=== PATIENT | male | born 1955 | race Caucasian/White ===

== ENCOUNTER 2023-06-10 12:02 | Inpatient (IN) | payer OTHER ==
[~2023-06-10] VITALS: Ht 177.8 cm; Wt 88.9 kg
[2023-06-10] VITALS (7 sets, daily range): BP systolic 143–183; PULSE 60–87; RESP 18–20; TEMP 97.7–98; O2SAT 96–98
[2023-06-10] MEDS: cefTRIAXone 1 GM IVPB PREMIX 50 ML IV ONE (13:28)
[2023-06-10] MEDS: DIPHTH,PERTUSS(ACELL),TET VAC 0.5 ML VIAL (Tdap) I.M. ONE (13:32)
[2023-06-10] MEDS ORDERED: ALBUTEROL SULFATE 0.083% 2.5 MG/3 ML VIAL.NEB INH PRN (14:00)
[2023-06-10] MEDS ORDERED: HYDROcodone/ACETAMIN 5-325 MG TAB (NORCO/ VICODIN) PO PRN (14:00)
[2023-06-10] MEDS ORDERED: LORazepam 2 MG/ML VIAL IVP PRN (14:00)
[2023-06-10] MEDS ORDERED: IPRATROPIUM BROM 0.5 MG/2.5 ML VIAL.NEB (ATROVENT) INH PRN (14:00)
[2023-06-10] MEDS ORDERED: ONDANSETRON HCL 4 MG/2 ML VIAL IVP PRN (14:00)
[2023-06-10] MEDS ORDERED: ACETAMINOPHEN 325 MG TABLET PO PRN (14:00)
[2023-06-10 14:04] LABS: BASOPHILS # (AUTO) 0.1 K/uL (0.0-0.2); BASOPHILS % (AUTO) 0.8 % (0.0-2.0); EOSINOPHILS # (AUTO) 0.2 K/uL (0.0-0.4); EOSINOPHILS % (AUTO) 2.8 % (0.0-4.0); HEMATOCRIT 39.2 % (36-54); HEMOGLOBIN 13.5 g/dL (14.0-18.0); LYMPHOCYTES # (AUTO) 1.1 K/uL (1.0-5.5); LYMPHOCYTES % (AUTO) 16.8 % (20.5-51.5); MEAN CORPUSCULAR HEMOGLOBIN 31 pg (27-31); MEAN CORPUSCULAR HGB CONC 34 % (32-36); MEAN CORPUSCULAR VOLUME 91 fL (79.0-98.0); MONOCYTES # (AUTO) 0.7 K/uL (0.0-1.0); MONOCYTES % (AUTO) 10.1 % (1.7-9.3); NEUTROPHILS # (AUTO) 4.6 K/uL (1.8-7.7); NEUTROPHILS % (AUTO) 69.5 % (40.0-70.0); PLATELET COUNT (AUTO) 261 K/uL (130-430); RED BLOOD CELL COUNT(AUTO) 4.32 MIL/uL (4.2-6.2); RED CELL DISTRIBUTION WIDTH 13.7 % (9.0-15.0); WHITE BLOOD COUNT (AUTO) 6.7 K/uL (4.8-10.8)
[2023-06-10 14:18] LABS: CALCIUM 8.5 mg/dL (8.4-11.0); CREATININE 1.73 mg/dL (0.55-1.30)
[2023-06-10 14:51] LABS: HEMOGLOBIN A1C 6.09 % (<5.7)
[2023-06-10] MEDS: NIFEdipine 30 MG TAB.ER.24 PO ONE (15:10)
[2023-06-10] MEDS: 0.45% NACL 1,000 ML IV SCH (16:52)
[2023-06-10] MEDS: VANCOMYCIN HCL 1,000 MG in NS 250 ML IV SCH (18:07)
[2023-06-10] MEDS: HYDROcodone/ACETAMIN 10-325 MG TAB PO PRN (19:00)
[2023-06-10] MEDS: ZOLPIDEM TARTRATE 5 MG TABLET PO PRN (21:49)
[2023-06-11 05:35] LABS: BASOPHILS # (AUTO) 0.1 K/uL (0.0-0.2); BASOPHILS % (AUTO) 0.7 % (0.0-2.0); EOSINOPHILS # (AUTO) 0.2 K/uL (0.0-0.4); EOSINOPHILS % (AUTO) 3.6 % (0.0-4.0); HEMOGLOBIN 13.3 g/dL (14.0-18.0); LYMPHOCYTES # (AUTO) 1.2 K/uL (1.0-5.5); LYMPHOCYTES % (AUTO) 16.8 % (20.5-51.5); MEAN CORPUSCULAR HEMOGLOBIN 31 pg (27-31); MEAN CORPUSCULAR HGB CONC 34 % (32-36); MEAN CORPUSCULAR VOLUME 90 fL (79.0-98.0); MONOCYTES # (AUTO) 0.8 K/uL (0.0-1.0); MONOCYTES % (AUTO) 11.5 % (1.7-9.3); NEUTROPHILS # (AUTO) 4.6 K/uL (1.8-7.7); NEUTROPHILS % (AUTO) 67.4 % (40.0-70.0); PLATELET COUNT (AUTO) 268 K/uL (130-430); RED BLOOD CELL COUNT(AUTO) 4.32 MIL/uL (4.2-6.2); RED CELL DISTRIBUTION WIDTH 13.7 % (9.0-15.0); WHITE BLOOD COUNT (AUTO) 6.9 K/uL (4.8-10.8)
[2023-06-11 05:51] LABS: CALCIUM 8.4 mg/dL (8.4-11.0); CREATININE 0.82 mg/dL (0.55-1.30); POTASSIUM 3.7 mmol/L (3.5-5.1); TOTAL BILIRUBIN 0.5 mg/dL (0.0-1.0)
[2023-06-11] MEDS: cefTRIAXone 1 GM in D5W 50 ML IV SCH (08:54)
[2023-06-11] MEDS ORDERED: NIFEdipine 30 MG TAB.ER.24 PO SCH (09:00)
[2023-06-11 09:08] VITALS: BP_SYST 142; PULSE 73; TEMP 97.5; O2SAT 98
[2023-06-11] MEDS: HEPARIN SODIUM,PORCINE 5,000 UNITS/ML VIAL SUBCUT SCH (09:23)
[2023-06-11] MEDS: ACETAMINOPHEN 325 MG TABLET PO PRN (09:23)
[2023-06-11] MEDS: NIFEdipine 30 MG TAB.ER.24 PO SCH (09:42)
[2023-06-11 12:01] VITALS: BP_SYST 147; PULSE 65; O2SAT 97
[2023-06-11 20:00] VITALS: BP_SYST 144; PULSE 83; RESP 18; TEMP 97.3; O2SAT 94
[2023-06-12] VITALS (7 sets, daily range): BP systolic 130–140; PULSE 72–79; RESP 17–18; TEMP 97.6–98.7; O2SAT 95–98
[2023-06-12 05:17] LABS: BASOPHILS # (AUTO) 0.1 K/uL (0.0-0.2); EOSINOPHILS # (AUTO) 0.3 K/uL (0.0-0.4); EOSINOPHILS % (AUTO) 4.3 % (0.0-4.0); HEMATOCRIT 42.8 % (36-54); HEMOGLOBIN 14.5 g/dL (14.0-18.0); LYMPHOCYTES # (AUTO) 1.6 K/uL (1.0-5.5); LYMPHOCYTES % (AUTO) 27.1 % (20.5-51.5); MEAN CORPUSCULAR HEMOGLOBIN 31 pg (27-31); MEAN CORPUSCULAR HGB CONC 34 % (32-36); MEAN CORPUSCULAR VOLUME 91 fL (79.0-98.0); MONOCYTES # (AUTO) 0.7 K/uL (0.0-1.0); MONOCYTES % (AUTO) 12.2 % (1.7-9.3); NEUTROPHILS # (AUTO) 3.4 K/uL (1.8-7.7); NEUTROPHILS % (AUTO) 55.4 % (40.0-70.0); PLATELET COUNT (AUTO) 299 K/uL (130-430); RED BLOOD CELL COUNT(AUTO) 4.72 MIL/uL (4.2-6.2); RED CELL DISTRIBUTION WIDTH 14.1 % (9.0-15.0); WHITE BLOOD COUNT (AUTO) 6.1 K/uL (4.8-10.8)
[2023-06-12 05:35] LABS: CALCIUM 8.9 mg/dL (8.4-11.0); CREATININE 0.93 mg/dL (0.55-1.30); POTASSIUM 3.8 mmol/L (3.5-5.1)
[2023-06-12] MEDS: BALSAM PERU/CASTOR OIL 56.7 GM OINT...G. TP SCH (12:00)
[2023-06-12] MEDS: VANCOMYCIN HCL 1.25 GM/NS 250 ML IV SCH (17:59)
[2023-06-13] VITALS (8 sets, daily range): BP systolic 139–173; PULSE 72–85; RESP 16–18; TEMP 97.5–98.7; O2SAT 85–96
[2023-06-13] MEDS: CEFEPIME 1 GM in D5W 50 ML IV SCH (14:03)
[2023-06-14 01:00] VITALS: BP_SYST 139; PULSE 82; RESP 18; TEMP 98.1; O2SAT 85
[2023-06-14 06:20] LABS: CALCIUM 8.8 mg/dL (8.4-11.0); CREATININE 0.96 mg/dL (0.55-1.30); VANCOMYCIN,TROUGH 16.6 ug/mL (10.0-20.0)
[2023-06-14 08:00] VITALS: O2SAT 95
[2023-06-14] MEDS: BALSAM PERU/CASTOR OIL 56.7 GM OINT...G. TP ONE (08:00)
[2023-06-14] MEDS ORDERED: NIFE-34 PO (09:30)
[2023-06-14 09:54] VITALS: O2SAT 96
[2023-06-14 10:35] VITALS: BP_SYST 150; PULSE 77; RESP 18; TEMP 98; O2SAT 95
[2023-06-14 11:09] VITALS: BP_SYST 147; PULSE 83; RESP 16; TEMP 98.1; O2SAT 97
[2023-06-14 12:57] VITALS: BP_SYST 147; PULSE 83; RESP 16; TEMP 98.1; O2SAT 97
== END 2023-06-14 15:00 | DRG 602 ==
LOC: SED 12:02 → SMU 13:58
PROVIDERS: ADMIT Internal Medicine; ATTEND Internal Medicine
DX: L03.115 Cellulitis of right lower limb (principal); N17.0 Acute kidney failure with tubular necrosis; L97.819 Non-pressure chronic ulcer of other part of right lower leg with unspecified severity; R73.03 Prediabetes; I10 Essential (primary) hypertension; I73.9 Peripheral vascular disease, unspecified; F17.210 Nicotine dependence, cigarettes, uncomplicated; B96.5 Pseudomonas (aeruginosa) (mallei) (pseudomallei) as the cause of diseases classified elsewhere; I87.2 Venous insufficiency (chronic) (peripheral); E66.9 Obesity, unspecified; I87.8 Other specified disorders of veins; Z68.28 Body mass index [BMI] 28.0-28.9, adult
CPT/HCPCS: 36415; 76770; 80048; 80053; 80202; 83037; 83605; 85025; 85651; 87040; 87070; 87075; 90715; 93923; 93970; 96365; 99285; J0692; J0696; J1644; J3370; J7050; J7060

== ENCOUNTER 2023-11-01 14:32 | Inpatient (IN) | payer OTHER ==
[~2023-11-01] VITALS: Ht 175.3 cm; Wt 86.8 kg
[~2023-11-01 14:32] MED LIST: NIFE-34 PO
[2023-11-01 14:43] VITALS: BP_SYST 196; PULSE 71; RESP 22; TEMP 98.3; O2SAT 98
[2023-11-01] MEDS: KETOROLAC TROMETHAMINE 30 MG VIAL IM ONE (15:42)
[2023-11-01 15:50] LABS: BASOPHILS % (AUTO) 0.2 % (0.0-2.0); EOSINOPHILS # (AUTO) 0.1 K/uL (0.0-0.4); EOSINOPHILS % (AUTO) 0.9 % (0.0-4.0); HEMATOCRIT 41.4 % (36-54); HEMOGLOBIN 13.9 g/dL (14.0-18.0); LYMPHOCYTES # (AUTO) 0.5 K/uL (1.0-5.5); LYMPHOCYTES % (AUTO) 5.4 % (20.5-51.5); MEAN CORPUSCULAR HEMOGLOBIN 31 pg (27-31); MEAN CORPUSCULAR HGB CONC 34 % (32-36); MEAN CORPUSCULAR VOLUME 91 fL (79.0-98.0); MONOCYTES # (AUTO) 0.4 K/uL (0.0-1.0); MONOCYTES % (AUTO) 4.4 % (1.7-9.3); NEUTROPHILS # (AUTO) 8.3 K/uL (1.8-7.7); NEUTROPHILS % (AUTO) 89.1 % (40.0-70.0); PLATELET COUNT (AUTO) 223 K/uL (130-430); RED BLOOD CELL COUNT(AUTO) 4.57 MIL/uL (4.2-6.2); RED CELL DISTRIBUTION WIDTH 14.4 % (9.0-15.0); WHITE BLOOD COUNT (AUTO) 9.4 K/uL (4.8-10.8)
[2023-11-01 16:09] LABS: ALBUMIN 3.5 g/dL (3.4-4.8); BILIRUBIN,DIRECT 0.2 mg/dL (0.0-0.3); CREATININE 1.15 mg/dL (0.55-1.30); TOTAL BILIRUBIN 0.7 mg/dL (0.0-1.0); TOTAL PROTEIN, SERUM 7.6 g/dL (6.4-8.3)
[2023-11-01] MEDS ORDERED: ACETAMINOPHEN 325 MG TABLET PO PRN (16:45)
[2023-11-01] MEDS ORDERED: hydrALAZINE HCL 20 MG/ML VIAL IVP PRN (16:45)
[2023-11-01] MEDS ORDERED: GLUCOSE (DEXTROSE) ORAL GEL -Adults PO PRN (16:45)
[2023-11-01] MEDS ORDERED: HYDROmorphone 2 MG/ML VIAL IVP PRN (16:45)
[2023-11-01] MEDS ORDERED: HYDROcodone/ACETAMIN 10-325 MG TAB PO PRN (16:45)
[2023-11-01] MEDS ORDERED: INSULIN REGULAR, HUMAN 100 UNITS/ML, 3 ML VIAL (humuLIN R) SUBCUT PRN (16:45)
[2023-11-01] MEDS ORDERED: D5W 1,000 ML IV PRN (16:45)
[2023-11-01] MEDS ORDERED: ONDANSETRON HCL 4 MG/2 ML VIAL IVP PRN (16:45)
[2023-11-01] MEDS ORDERED: DEXTROSE 50% JECT 50 ML DISP.SYRIN IVP PRN (16:45)
[2023-11-01] MEDS: NACL 0.9% 1,000 ML IV ONE (16:55)
[2023-11-01] MEDS ORDERED: OLME20TA69 PO (16:57)
[2023-11-01] MEDS: D5NS 1,000 ML IV SCH (17:20)
[2023-11-01 20:35] VITALS: BP_SYST 142; PULSE 81; RESP 18; TEMP 98.8; O2SAT 100
[2023-11-02 05:33] LABS: BASOPHILS % (AUTO) 0.4 % (0.0-2.0); EOSINOPHILS # (AUTO) 0.4 K/uL (0.0-0.4); EOSINOPHILS % (AUTO) 5.3 % (0.0-4.0); HEMATOCRIT 39.6 % (36-54); HEMOGLOBIN 13.5 g/dL (14.0-18.0); LYMPHOCYTES # (AUTO) 1.2 K/uL (1.0-5.5); LYMPHOCYTES % (AUTO) 14.7 % (20.5-51.5); MEAN CORPUSCULAR HEMOGLOBIN 31 pg (27-31); MEAN CORPUSCULAR HGB CONC 34 % (32-36); MEAN CORPUSCULAR VOLUME 91 fL (79.0-98.0); MONOCYTES # (AUTO) 0.7 K/uL (0.0-1.0); MONOCYTES % (AUTO) 8.3 % (1.7-9.3); NEUTROPHILS # (AUTO) 5.8 K/uL (1.8-7.7); NEUTROPHILS % (AUTO) 71.3 % (40.0-70.0); PLATELET COUNT (AUTO) 200 K/uL (130-430); RED BLOOD CELL COUNT(AUTO) 4.36 MIL/uL (4.2-6.2); RED CELL DISTRIBUTION WIDTH 14.2 % (9.0-15.0); WHITE BLOOD COUNT (AUTO) 8.1 K/uL (4.8-10.8)
[2023-11-02 05:51] LABS: CALCIUM 8.2 mg/dL (8.4-11.0); CREATININE 1.05 mg/dL (0.55-1.30); POTASSIUM 4.1 mmol/L (3.5-5.1)
[2023-11-02 07:42] VITALS: O2SAT 99
[2023-11-02 08:20] VITALS: BP_SYST 140; PULSE 67; RESP 16; TEMP 98.1; O2SAT 99
[2023-11-02] MEDS ORDERED: GASTROGRAFIN 120 ML ONE (08:23)
[2023-11-02] MEDS: PANTOPRAZOLE SODIUM 40 MG/VIAL (PROTONIX) IVP SCH (08:56)
[2023-11-02 11:09] VITALS: BP_SYST 145; PULSE 61; RESP 16; TEMP 99; O2SAT 98
[2023-11-02 16:06] VITALS: BP_SYST 134; PULSE 58; RESP 16; TEMP 97.7; O2SAT 97
[2023-11-02 19:00] VITALS: O2SAT 97
[2023-11-02 20:00] VITALS: BP_SYST 144; PULSE 78; RESP 18; TEMP 96.8; O2SAT 97
[2023-11-03 00:46] VITALS: BP_SYST 141; PULSE 78; RESP 16; TEMP 97.1; O2SAT 95
[2023-11-03 08:00] VITALS: BP_SYST 146; PULSE 71; RESP 18; TEMP 97.8; O2SAT 96
[2023-11-03 09:00] VITALS: O2SAT 96
[2023-11-03 12:47] VITALS: BP_SYST 129; PULSE 63; RESP 18; TEMP 97.5; O2SAT 94
[2023-11-03 13:50] VITALS: BP_SYST 129; PULSE 63; RESP 18; TEMP 97.5; O2SAT 94
== END 2023-11-03 14:35 | disposition home or self-care (01) | DRG 389 ==
LOC: SED 14:32 → SMU 16:37
PROVIDERS: ADMIT Student in an Organized Health Care Education/Training Program; ATTEND Student in an Organized Health Care Education/Training Program
DX: K56.699 Other intestinal obstruction unspecified as to partial versus complete obstruction (principal); R65.10 Systemic inflammatory response syndrome (SIRS) of non-infectious origin without acute organ dysfunction; A08.4 Viral intestinal infection, unspecified; I10 Essential (primary) hypertension; I73.9 Peripheral vascular disease, unspecified; Z79.899 Other long term (current) drug therapy
CPT/HCPCS: 36415; 74250; 80048; 80076; 82948; 83690; 84484; 85025; 87045-TC; 87046; 87230; 93005; 96360; 96372; 99291; J1170; J1815; J1885; J2470; Q9963

== ENCOUNTER 2024-02-04 22:53 | Emergency (ER) | payer OTHER ==
[~2024-02-04] VITALS: Ht 177.8 cm; Wt 83.9 kg
[~2024-02-04 22:53] MED LIST changes: +OLME20TA69 PO
[2024-02-04 23:01] VITALS: BP_SYST 167; PULSE 75; RESP 20; O2SAT 97
[2024-02-05] MEDS: ACETAMINOPHEN 500 MG TABLET PO ONE (00:14)
[2024-02-05] MEDS: KETOROLAC TROMETHAMINE 30 MG VIAL IM ONE (00:15)
[2024-02-05 01:13] LABS: BASOPHILS # (AUTO) 0.1 K/uL (0.0-0.2); BASOPHILS % (AUTO) 0.6 % (0.0-2.0); EOSINOPHILS # (AUTO) 0.6 K/uL (0.0-0.4); EOSINOPHILS % (AUTO) 5.8 % (0.0-4.0); HEMATOCRIT 38.7 % (36-54); HEMOGLOBIN 13.5 g/dL (14.0-18.0); LYMPHOCYTES # (AUTO) 1.4 K/uL (1.0-5.5); LYMPHOCYTES % (AUTO) 13.2 % (20.5-51.5); MEAN CORPUSCULAR HEMOGLOBIN 32 pg (27-31); MEAN CORPUSCULAR HGB CONC 35 % (32-36); MEAN CORPUSCULAR VOLUME 92 fL (79.0-98.0); MONOCYTES # (AUTO) 1.2 K/uL (0.0-1.0); MONOCYTES % (AUTO) 11.2 % (1.7-9.3); NEUTROPHILS # (AUTO) 7.5 K/uL (1.8-7.7); NEUTROPHILS % (AUTO) 69.2 % (40.0-70.0); PLATELET COUNT (AUTO) 221 K/uL (130-430); RED CELL DISTRIBUTION WIDTH 13.8 % (9.0-15.0); WHITE BLOOD COUNT (AUTO) 10.8 K/uL (4.8-10.8)
[2024-02-05 01:22] LABS: CALCIUM 8.4 mg/dL (8.4-11.0); CREATININE 1.21 mg/dL (0.55-1.30); POTASSIUM 4.1 mmol/L (3.5-5.1); TOTAL BILIRUBIN 0.3 mg/dL (0.0-1.0); TOTAL PROTEIN, SERUM 7.9 g/dL (6.4-8.3); URIC ACID 5.4 mg/dL (2.4-7.0)
[2024-02-05] MEDS ORDERED: IBUP-1969 PO (02:26)
[2024-02-05] MEDS ORDERED: HYDR-3917 PO (02:26)
[2024-02-05] MEDS ORDERED: ACET-2634 PO (02:26)
[2024-02-05 02:30] VITALS: BP_SYST 170; PULSE 57; RESP 14; TEMP 98.1; O2SAT 96
== END 2024-02-05 02:30 | disposition home or self-care (01) ==
LOC: SED 22:53
DX: M25.531 Pain in right wrist (principal); I10 Essential (primary) hypertension; I73.9 Peripheral vascular disease, unspecified; Z79.899 Other long term (current) drug therapy
CPT/HCPCS: 99285; 76881; 80053; 84550; 85025; 36415; 29125; 73110; 96372; J1885